=== PATIENT | female | born 1950 ===

== ENCOUNTER 2025-05-09 14:19 | Outpatient (AMB) | payer MEDICARE, MEDICAID, SELFPAY ==
--- OUTSIDE RECORDS SUMMARY | 2025-05-09 14:25 | XMS_ITS | Encounter Summary ---
Author Organization [facility] Address [address] [facility] [address] [place] [id number] Phone Care Team Providers Care Bias Cutter Name Role Phone Crow Love MD Primary Care Provide r Encounter Details Date Type Department Care Team (Late st Contact Info) Description 01/23/2019 Procedure Pass [facility] [address] [place] [address] Social History Tobacco Use Types Packs/Day Years Used Date Smoking Tobacco: Former Cigarettes Smokeless Tobacco: Never Comments:quit yrs ago Alcohol Use Standard Drinks/Week Comments Yes 0 (1 standard drink = 0.6 oz pur e alcohol) rarely Comments Unknown Sex and Gender Information Value Date Recorded Sex Assigned at Not on file Legal Sex Female 6:11 PM EST Gender Identity Not on file Sexual Orientation Not on file documented as of this encounter Plan of Treatment Not on file documented as of this encounter Visit Diagnoses Not on filedocumented in this encounter Care Teams Bias Cutter Relationship Specialty Start Date End Date Crow Love MD [address] [place] [address] PCP - General Family Medicine 01/11/19 documented as of this encounter Additional Source Comments The information contained in this document represents components of the legal health record. It is not the complete legal health record.[facility]
--- OUTSIDE RECORDS SUMMARY | 2025-05-09 14:25 | XMS_ITS | Data Portability ---
Author Organization [facility], [facility] Address [address] [place] [address] Care Team Providers Care Regulatory Agency Director Name Role Phone SMITA HWANG Agricultural [employer] Educator Unavailable Assessment Encounter Date Assessment Date Assessment LastModified by Organization Details LastModified Time 04/04/2024 04/04/2024 I am seeing the patient today under the supervision of Dr Escalante who was available but who did not see the patient. alex Not available 04/04/2024 13:24:39 05/28/2024 05/28/2024 I am seeing the patient today under the supervision of Dr. Escalante who was available but who did not see the patient. HPI: Patient presents today follow-up regarding their Left knee. They have had difficulty up and down stairs sitting standing. Previous injection gave good relief until recent. Problems ambulating. Krzp-ckm-suaqzgk medications are helping somewhat but not significantly. Pain is constant aching sometimes sharp pain with giving out sensations. Past family, medical, social history and review of systems has been reviewed, updated and is located in the patient s chart. Examination: The patient is well appearing and in no apparent distress. Alert and oriented x3. Gait is symmetric. Examination of the Left knee reveals no evidence of any edema, erythema, or warmth. No Deformity. Range of motion of the knee limited with mild discomfort at the end ranges. Mild effusion. Does have some tenderness to palpation about the medial hemijoint line. No tenderness to palpation about the lateral hemijoint line. Patellofemoral crepitus is noted. mild lateral ligamentous laxity. Negative Cindy s. Calf is supple and nontender. Neurovascularly intact distally. Impression: Left Knee osteoarthritis Plan: We discussed the role of conservative management including medications, physical therapy, injection and bracing. At this point the patient was to proceed with injection. Please see procedure note. They will follow up with us as scheduled. [email or web address] Not available 05/28/2024 10:38:26 07/20/2024 07/20/2024 I am seeing the patient today under the supervision of Dr Escalante who was available but who did not see the patient. [email or web address] Not available 07/20/2024 10:22:52 12/19/2024 12/19/2024 I am seeing the patient today under the supervision of Dr Escalante who was available but who did not see the patient. [email or web address] Not available 12/19/2024 10:34:29 03/20/2025 03/20/2025 I am seeing the patient today under the supervision of Dr Escalante who was available but who did not see the patient. [email or web address] Not available 03/20/2025 12:59:01 Plan of Treatment Reminders Order Date Submit Date Provider Last Modified By Organization Details Last Modified Time Details Appointments RECHECK 15 2024 01:00P Kayli Newton PA-C Not available Not available Not available Lab None recorded. Referral None recorded. Procedures None recorded. Surgeries None recorded. Imaging None recorded. Medication Orders cyclobenz aprine 10 mg tablet 2024 025 [email or web address] [id number] [address] [place], [address], 03/20/2025 14:48:03 Patient TargetsNo targets recorded. Patient InstructionsNo instructions recorded. Reason for Referral None Reported. Results Created Date Observation Date Name Description Value Unit Range Abnormal Flag Note LastModifiedBy Organization Detail LastModifiedTime 03/22/20 24 03/22/2024 XR, hip, unila teral , 2 or 3 view http:/ [email or web address] ?Encry pted=s hAaTro YD8dLq bEUv6g %2BXZw aYqtaq 0bqfl% 2Fg9IQ a4ajBk vP9nXo QUaueC m3YtLR FvZlgJ JJ8mAn HZtai3 2p6426 AC0Kua 3qFUKP eUC8mr 84%3D INTERFACE [facility] [address], [place], [address], 03/22/2024 10:35:16 03/22/20 24 03/22/2024 XR, hip, unila teral , 2 or 3 view http:/ [email or web address] ?Encry pted=s hAaTro YD8dLq bEUv6g %2BXZw aYqtaq 0bqfl% 2Fg9IQ a4ajBk vP9nXo QUaueC m3YtLR FvZlgJ JJ8mAn HZtai3 4q3299 AC0Kua 3qFUKP eUC8mr 84%3D INTERFACE [facility] [address], [place], [address], 03/22/2024 10:35:18 Result Notes None recorded. Problems Name Problem SNOMED Code Status Onset Date Resolution Date Notes Provider Name and Address Organization Details Recorded Time No complaints 720609249 Active Status : 'A'; Not Available [facility] 4 09:16:09 Osteoarthr itis of knee 276662054 Active 2023 GLENN CARD [facility] 4 10:48:14 Osteoarthr itis of left hip joint 3595009544629 08 Active 2023 GLENN cameron [facility] 4 13:24:40 Osteoarthr itis of right hip joint 9822030922386 07 Active 2023 GLENN KYAW [facility] 4 13:24:40 Problem Notes None recorded. Procedures Surgical History Date Name Laterality Status Provider Name and Address Organization Details Recorded Time 03/20/2025 KLEBER INJ completed Haile Barney PA-C [address], [place], [address], [facility] 03/20/2025 12:59:10 03/20/2025 JZHip Inj completed Haile Barney PA-C [address], [place], [address], [facility] 03/20/2025 12:59:12 12/19/2024 JZKNEE INJ completed Haile Barney PA-C [address], [place], [address], [facility] 12/19/2024 10:34:18 12/19/2024 JZHip Inj completed Haile Barney PA-C [address], [place], [address], [facility] 12/19/2024 10:34:24 07/20/2024 JZKNEE INJ completed Haile Barney PA-C [address], [place], [address], [facility] 07/20/2024 10:22:47 07/20/2024 JZHip US completed Haile Barney PA-C [address], [place], [address], [facility] 07/20/2024 10:22:42 05/28/2024 JZKNEE INJ completed Haile Barney PA-C [address], [place], [address], [facility] 05/28/2024 10:38:23 04/04/2024 BetsyZChema completed Haile Barney PA-C [address], [place], [address], [facility] 04/04/2024 13:37:24 02/16/2024 JZKNEE INJ completed Haile Barney PA-C [address], [place], [address], [facility] 02/16/2024 10:54:27 Imaging Results None recorded. Procedure Notes None recorded. Medical Equipment None Reported. Allergies Allergen ID Allergen Name Allergen Category Reaction Reaction Severity Criticality Documentation Date Start Date Code Code System Note Provider Name and Address Organization Details Recorded Time 04119 Product containin g penicilli n (product) medicatio n Not available Not available Not available 12/19/20232007 93302 8001 SNOMED Aller gyRea ction : 'Skin React ion'; Not Available [facility] 13:40:13 Medications Name Sig Start Date Stop Date Status Note LastModified by Organization Details LastModified Time cyclobenzaprine 10 mg tablet Take 1 tablet 3 times a day by oral route. 2024 active Not Available Not Available Not Avai lable atorvastatin 80 mg tablet active Not Available Not Available No t Available prednisone 20 mg tablet active Not Available Not Available Not Available sertraline 100 mg tablet active Not Available Not Available No t Available valsartan 80 mg tablet active Not Available Not Available Not Available levothyroxine 75 mcg tablet active Not Available Not Available N ot Available fluticasone 500 mcg-salmeterol 50 mcg/dose blistr powdr for inhalation active Not Available Not Available N ot Available mupirocin 2 % topical ointment active Not Available Not Avail able Not Available albuterol sulfate HFA 90 mcg/actuation aerosol inhaler active Not Available Not Availa ble Not Available imatinib 100 mg tablet active Not Available Not Available Not Available aripiprazole 5 mg tablet active Not Available Not Available No t Available duloxetine 20 mg capsule,delayed release active Not Available Not Available Not Available sertraline active Not Available Not Av ailable Not Available atorvastatin active Not Available Not Available Not Available valsartan active Not Available Not Theresa ilable Not Available levothyroxine active Not Available Not Available Not Available Advair Diskus active Not Available Not Available Not Available imatinib active Not Available Not Avai lable Not Available aripiprazole 2 mg tablet active Not Available Not Available No t Available budesonide-formo terol HFA 160 mcg-4.5 mcg/actuation aerosol inhaler active Not Available Not Availa ble Not Available budesonide-formo terol HFA 80 mcg-4.5 mcg/actuation aerosol inhaler active Not Available Not Availa ble Not Available lurasidone 20 mg tablet active Not Available Not Available Not Available Vitals Date Recorded Body height Body mass index (BMI) Body weight Provider Name and Address Organization Details Last Updated DateTime 12/19/2024 160.02 cm 37.2 kg/m2 72364.4 g Jordan Fernandez [place] [facility] 12/19/2024 10:18:49 Date Recorded Body height Body mass index (BMI) Body weight Provider Name and Address Organization Details Last Updated DateTime 03/20/2025 160.02 cm 37.2 kg/m2 36922.4 g Jordan Fernandez [place] [facility] 03/20/2025 10:59:44 Date Recorded Body height Body mass index (BMI) Body weight Provider Name and Address Organization Details Last Updated DateTime 04/04/2024 160.02 cm 37.2 kg/m2 18904.4 g GLENN RAYNARYLEY [facility] 04/04/2024 13:25:13 Date Recorded Body height Body mass index (BMI) Body weight Provider Name and Address Organization Details Last Updated DateTime 05/28/2024 160.02 cm 37.2 kg/m2 35925.4 g Jordan Fernandez [place] [facility] 05/28/2024 10:24:56 Date Recorded Body height Body mass index (BMI) Body weight Provider Name and Address Organization Details Last Updated DateTime 07/20/2024 160.02 cm 37.2 kg/m2 00525.4 g Jordan Fernandez [place] [facility] 07/20/2024 10:17:20 Social History None recorded. Functional Status None recorded. Mental Status None recorded. Family History Nothing Reported. Medical History Condition Response Coronary Artery Disease N Emphysema N COPD N Heart Trouble Y Gastrointestinal Disease N Autoimmune disease N Arthritis Y Blood Clot N Acid Reflux (GERD) N Cancer Y Stroke N Rheumatoid Arthritis N Arrhythmia N Headaches N Fibromyalgia Y Breathing or lung disorders Y Nerve Disorders Y Kidney/Bladder Problems N Bleeding Disorder N AIDS/HIV N Asthma N Peripheral Vascular Disease N Hepatitis N Pulmonary Embolism N Anxiety/Depression Y Pacemaker N Vascular Disease N Orthotics N Allergies/Hayfever N Thyroid Problems N Anemia N Heart Attack (DC) N Cholesterol Y Diabetes N Seizures/Epilepsy N Congestive Heart Failure (CHF) N Sleep Apnea Y Heart Disease N Hypertension Y Osteoporosis N Gynecological HistoryNo gynecological history recorded. Obstetrics History GPAL:G 0 P 0 0 0 0 Past Encounters Encounter ID Performer Location Encounter Start Date Encounter Closed Date Diagnosis/Indication Diagnosis SNOMED-CT Code Diagnosis ICD10 Code Diagnosis Note [id number] Haile Zwirko, PA-C [facility] [address] [place] [address] 02/16/2024 10:43:44 03/08/2024 15:40:05 Osteoarthritis of knee 690540224 M17.9 [id number] Nelli Pack PA-C [facility] [address] [place] [address] 03/22/2024 10:20:26 04/23/2024 14:57:18 Pain of right hip joint 6843325782 12764 M25.551 Osteoarthr itis of right hip joint 9975105336 93398 M16.11 [id number] Haile Barney PA-C [facility] [address] [place] [address] 04/04/2024 13:18:49 05/02/2024 08:20:15 Osteoarthritis of right hip joint 3978010184 63407 M16.11 [id number] Haile Barney PA-C [facility] [address] [place] [address] 05/28/2024 10:19:04 06/25/2024 16:16:27 Osteoarthritis of knee 952891506 M17.9 [id number] Haile Barney PA-C [facility] [address] [place] [address] 07/20/2024 10:14:11 08/15/2024 12:45:24 Osteoarthritis of knee 270655381 M17.9 Osteoarthr itis of right hip joint 9377415960 99217 M16.11 [id number] Haile Barney PA-C [facility] [address] [place] [address] 12/19/2024 10:07:53 01/04/2025 12:49:34 Osteoarthritis of knee 225888133 M17.9 Osteoarthr itis of left hip joint 7312820507 70552 M16.12 [id number] Haile Barney PA-C [facility] [address] [place] [address] 03/20/2025 10:54:04 04/01/2025 13:38:11 Osteoarthritis of knee 214025929 M17.9 Osteoarthr itis of left hip joint 2637164252 23649 M16.12 Health Concerns Section Related Observation LastModified by Organization Detai ls LastModified Time None Recorded Concern Status LastModified by Organization Details LastModified Time None Recorded Advance Directives Directive None Recorded Payers Insurance Date Sequence Insurance Name Policy Number Policy Huitron Covered Member ID Huitron Member ID Guarantor Name 03/20/2025 2 [place] [facility] Andria Logan [id number] Andria Logan 11/09/2024 [employer] Andria Logan 07/19/2024 2 [place] [facility] Andria Logan [id number] Andria Logan 03/20/2025 1 [place] [facility] Andria Logan [id number] Andria Logan OBGyn Episode No OBEpisode recorded.
--- NOTE | 2025-05-09 15:19 | A.OFFVIS_ITS ---
Vital Signs 05/09/25 15:21 BP 110/80 Blood Pressure Location Rt brachial Position Sitting Pulse 62 Pulse Source Pulse Oximeter Pulse Oximetry (%) 98 Oxygen Delivery Method Room Air Intake Visit Reasons: 6 mnts f/u appt Accompanied by: Self / Same As Patient Allergies No Known Allergies Allergy (Verified 05/09/25 15:19) Medication List - Last Reconciled 05/09/25 by Ashely Forbes MD albuterol sulfate 90 mcg/actuation inhalation aspirin 81 mg PO DAILY atorvastatin 80 mg PO DAILY budesonide-formoterol 160-4.5 mcg/actuation (Symbicort) 1 inh inhalation BID budesonide-formoterol 160-4.5 mcg/actuation (Symbicort) 1 inh inhalation BID duloxetine 60 mg PO DAILY fluticasone propion-salmeterol 500-50 mcg/dose (Advair Diskus) 1 inh inhalation BID imatinib mg PO levothyroxine 75 mcg PO DAILY sertraline 100 mg PO ONCE valsartan 80 mg PO DAILY HPI Comments Details: 74y/o female comes here follow up of tremors. No change in tremors. Now she also has hip pain and f/u with pain management- feels she needs surgery . History from last visit-10/2024 She was diagnosed with familial tremors many years ago and it worsened when she was on high doses of sertraline- 250mg qd . The dose was decreased in the past year and feels the tremor shave lessened. she was also trialed on abilify for 3 months but could not tolerate it.The tremors are in coty hands and Right leg, some head tremors.the tremors are at rest , posture and action.she is not sure about exposure to ripsperdal, haldol,zyprexa geodon.Tremors are worse when she is trying to write or any activities that needs fine motor coordination.she works at the [employer] .she denies family h/o tremors she has h/o cervical spondylosis seen at [facility] and scheduled for surgery.C spine X ray shows multilevel deg changes. she also has Obstructive sleep apnea diagnosed in 2009 and is on CPAP- f/u at [facility].she has.trouble with mask [facility] Medical History JOAO on CPAP Coarse tremors Leukemia, chronic Sleep related hypoxia Viral enteritis Obesity JOAO (obstructive sleep apnea) Migraine DEANNA (acute kidney injury) Hypothyroidism HTN (hypertension) Hyperlipidemia Fibromyalgia Diverticulosis Depression CAD (coronary artery disease) Asthma STEMI (ST elevation myocardial infarction) GERD (gastroesophageal reflux disease) Surgical History Hx of cholecystectomy Social History Alcohol intake: current Physical Exam Vital Signs: Last Vital Signs Pulse 62 05/09/25 15:21 BP 110/80 05/09/25 15:21 Pulse Ox 98 05/09/25 15:21 Oxygen Delivery Method Room Air 05/09/25 15:21 Const General: cooperative and anxious Nutritional Appearance: obese Orientation/consciousness: patient oriented x3 Eyes Pupils: Equal, round and reactive pupils present Neuro Other: Neck - restricted range of motion Mild head tremors Coty upper extremity - mild rest, postural and rest tremors Right Lower extremity - tremors , mild postural gait- slow, antalgic, mild stoop. No cogwheel rigidity No perioral movements anxious Mallampatti grade 4 General: patient oriented x3, tone normal, moves all extremities and no focal motor deficits Cranial nerves: Yes Facial sensation intact/muscles of mastication intact, Yes Equal, round and reactive pupils present, Yes Bilaterally intact EOM present, Yes Nystagmus not present, Yes Normal facial strength present, Yes Midline tongue present, Yes Symmetric palate elevation present and Yes Ability to bilaterally elevate shoulders present Cognition (Neuro): normal cognition Motor exam (neuro): 5/5 motor strength present throughout and Normal motor muscle tone present throughout Coordination: [id number]-in-crzc test normal Assessment & Plan Assessment & Plan (1) Coarse tremors: Comment: exaggerated physiologic tremors, medictaion induced etc Code(s): G25.2 - Other specified forms of tremor Category: Medical Plan The tremors are likely exaggerated physiological tremors worsened by anxiety and medications. No evidence of Parkinsons on todays visit . I will follow her up clinically F/u with Neurospine for cervical myelopathy F/u [facility] sleep for sleep apnea Orders: Referrals Neurosurgery Referral G95.9 - Disease of spinal cord, unspecified Coding Level of Care Code Est Pt Level 4 (96511) Diagnoses Coarse tremors G25.2
[2025-05-09 15:21] VITALS: BP 110/80; PULSE 62; O2SAT 98
== END 2025-05-09 15:40 | disposition home or self-care (01) ==
LOC: HO.HSMS 14:19
PROVIDERS: PCP Family Medicine; Visit Provider Psychiatry & Neurology Neurology
DX: G25.2 Other specified forms of tremor (principal)
CPT/HCPCS: 99214

== ENCOUNTER → 2025-05-09 14:19 | Outpatient (BNVA) | payer MEDICARE, MEDICAID, SELFPAY | PROVIDERS: PCP Family Medicine; Visit Provider Psychiatry & Neurology Neurology | DX: G25.2 Other specified forms of tremor (principal); G95.9 Disease of spinal cord, unspecified; Z79.82 Long term (current) use of aspirin; Z79.899 Other long term (current) drug therapy | CPT/HCPCS: 99212 ==